=== PATIENT | female | born 1975 | race African-American/Black ===

== ENCOUNTER 2020-09-09 23:06 | Emergency (ER) | payer MEDICARE, MEDICAID ==
[~2020-09-09] VITALS: Ht 170.2 cm; Wt 82.0 kg
[2020-09-09] MEDS ORDERED: ONDANSETRON HCL 4MG/2ML INJ IV SCH (23:41)
[2020-09-09] MEDS ORDERED: LEVETIRACETAM 500MG PREMIX 100 ML IV SCH (23:45)
[2020-09-09] MEDS ORDERED: SODIUM CHLORIDE 0.9% 1,000 ML IV ONE (23:45)
[2020-09-09 23:54] LABS: BASOPHILS % 0.4 % (0.0-2.0); EOSINOPHILS % 0.2 % (0.0-5.0); HEMATOCRIT. 42.9 % (36.0-48.0); HEMOGLOBIN. 14.2 g/dL (12.0-16.0); LYMPHOCYTES % 21.1 % (20.0-50.0); MEAN CORPUSCULAR HEMOGLOBIN 30.8 pg (28.0-32.0); MEAN CORPUSCULAR VOLUME 93.2 fL (81.0-99.0); MEAN PLATELET VOLUME 7.9 fl (7.4-10.4); MONOCYTES % 8.9 % (2.0-8.0); NEUTROPHILS % 69.4 % (40.0-76.0); PLATELET 265 x1000/uL (130-400); RED BLOOD CELL COUNT 4.61 mill/uL (4.2-5.4); RED CELL DISTRIBUTION WIDTH 12.2 % (11.6-14.6)
[2020-09-10 00:02] LABS: CHLORIDE 108 mEq/L (98-107)
[2020-09-10 00:26] LABS: HCG SCREEN NEGATIVE
[2020-09-10] MEDS ORDERED: KEPP500 MT (00:49)
[2020-09-10] MEDS ORDERED: ONDA4TAB5 MT (00:49)
[2020-09-10] MEDS ORDERED: POTASSIUM CHLORIDE 20MEQ TABLET SR PO ONE (01:00)
[2020-09-10 01:51] VITALS: BP 110/67
== END 2020-09-10 01:51 | disposition home or self-care (01) ==
LOC: ER 23:06
DX: G40.909 Epilepsy, unspecified, not intractable, without status epilepticus (principal); R11.2 Nausea with vomiting, unspecified; R62.50 Unspecified lack of expected normal physiological development in childhood
CPT/HCPCS: 36415; 71045; 80053; 83690; 84703; 85025; 93005; 96365; 96375; 99285; J1953; J2405